=== PATIENT | male | born 1990 | race Caucasian/White ===

== ENCOUNTER 2024-04-15 08:30 | Outpatient (REF) | payer OTHER, SELFPAY ==
--- NOTE | ~2024-04-15 | XR_ITS ---
EXAMINATION: XR CHEST CLINICAL INFORMATION: R06.2 - Wheezing COMPARISON: None available. TECHNIQUE: 2 views of the chest were obtained. FINDINGS: The cardiac, hilar, and mediastinal contours are normal. The lungs are clear bilaterally. There is no pneumothorax or pleural effusion. There is no focal osseous or soft tissue abnormality. XR/XR chest 2V IMPRESSION: Normal chest. Electronically signed by: Ghanshyam Hensley MD 04/15/2024 10:28 AM [facility]
--- OUTSIDE RECORDS SUMMARY | 2024-04-15 11:27 | XMS_ITS | Clinical Summary ---
Author Organization [facility] Address [address] [place] [address] Care Team Providers Care Braiding Operator Name Role Phone Lisa Lu MD Primary Care Provider [phone] Allergies No known active allergies Medications No [...] age to complete this topic Care Teams Braiding Operator Relationship Specialty Start Date End Date Lisa Lu MD [address] [place] [address] Primary Care JELENA Jack [phone] PCP - General Family Medicine 11/10/18
--- OUTSIDE RECORDS SUMMARY | 2024-04-15 11:27 | XMS_ITS | Clinical Summary ---
Author Organization [facility] Address [address] [place] [address] Care Team Providers Care Three Dimensional Map Modeler Name Role Phone Lisa Lu MD Primary Care Provider [phone] Social History Tobacco Use Types Packs/Day Years [...] age to complete this topic Care Teams Three Dimensional Map Modeler Relationship Specialty Start Date End Date Lisa Lu MD [address] [place] [address] PCP - General Family Medicine 11/10/18
--- OUTSIDE RECORDS SUMMARY | 2024-04-15 11:27 | XMS_ITS | Clinical Summary ---
Author Organization [facility] Address [address] [place] [phone] Phone Care Team Providers Care Insurance Loss Adjuster Name Role Phone Unavailable Primary Care Provider [...]
== END 2024-04-15 08:31 | disposition home or self-care (01) ==
LOC: HO.HMGCX 08:30
PROVIDERS: Visit Provider Nurse Practitioner Family
DX: R06.2 Wheezing (principal); R68.89 Other general symptoms and signs
CPT/HCPCS: 71046

== ENCOUNTER 2024-04-15 08:30 | Outpatient (AMB) | payer OTHER, SELFPAY ==
--- NOTE | 2024-04-15 08:36 | MHC.OFFWIV ---
Intake Vital Signs 04/15/24 08:41 Height 5 ft 10 in Weight 266 lb BMI 38.2 BP 104/66 Blood Pressure Location Lt brachial Position Sitting Respiration 13 Pulse 116 H Pulse Source Pulse Oximeter Temp 99.7 F Temp Source Oral Pulse Oximetry (%) 94 Oxygen Delivery Method Room Air Intake Visit Reasons: Upper respiratory infection? Intake Note: Patient complaining of coughing, sinus feels swollen, coughing up phlegm, constant headache, sinus pressure on eyes, and nights sweats x 3 days Patient Tobacco Use Status: Never used Tobacco Automatic Paint Sprayer Operator Required: No Allergies No Known Allergies Allergy (Verified 04/15/24 09:08) Medication List - Last Reconciled 04/15/24 by Vicki White, CERTIFIED PROSTHETIST/ORTHOTIST- lamotrigine mg PO BID Do you need a note to return to daycare/school/sports/work: Yes HPI HPI Comments History of Present Illness Details 33 y/o M started to feel ill on Saturday w flu like sx cough, productive sinus pressure + sore throat, fever, headache Has not taken any bkuq-sem-agghfuw medications as it is contraindicated due to his epilepsy Exam Awake alert NAD, mildly ill-appearing Sclera and conjunctiva clear bilat Nares clear discharge, turbinates erythematous, no sinus tenderness with palpation bilat TM intact and injected bilat MMM, pharynx WNL Tachycardic, regular rhythm LS coarse inspiratory expiratory rhonchi throughout with a reactive cough without distress Plan Treat for the flu with Tamiflu, albuterol for the wheezing. Stat chest x-ray today. Patient will be called with the results once available. Educated on reasons to return to the office or seek additional care CXR negative for PNA. Treatment as above. PT called w/ results. Total time spent caring for the patient today was 30 minutes. This includes time spent before the visit reviewing the chart, time spent during the visit, and time spent after the visit on documentation, reviewing laboratory results, diagnostic imaging, medications, performing a medically necessary evaluation, counseling on diagnoses, care coordination, ordering appropriate tests, ordering appropriate medications, review of tests performed by other providers, reporting test results with the patient, communication with other healthcare providers. [facility] [place] [facility] [place] [address] XRay Report Signed Patient: Jono Lopez MR#: [id number] : 1990 Acct:[id number] Age/Sex: 33 / M ADM Date: 04/15/24 Loc: HO.HMGCX Attending Dr: Vicki PERALES Ordering Physician: Vicki White Date of Service: 04/15/24 Procedure(s): XR chest 2V Accession Number(s): [id number] cc: Vicki White~ EXAMINATION: XR CHEST CLINICAL INFORMATION: R06.2 - Wheezing COMPARISON: None available. TECHNIQUE: 2 views of the chest were obtained. FINDINGS: The cardiac, hilar, and mediastinal contours are normal. The lungs are clear bilaterally. There is no pneumothorax or pleural effusion. There is no focal osseous or soft tissue abnormality. XR/XR chest 2V IMPRESSION: Normal chest. Electronically signed by: Ghanshyam Hensley MD 04/15/2024 10:28 AM [facility] Dictated By: Ghanshyam Hensley MD Signed By: <Electronically signed by Ghanshyam Hensley MD in OV> 04/15/24 1028 DD/ 0950 TD/TT: 04/15/24 1003 Narrow Gauge Engineer: [facility] Social History Patient Tobacco Use Status: Never used Tobacco Physical Exam Vital Signs: Last Vital Signs Temp 99.7 F 04/15/24 08:41 Pulse 116 H 04/15/24 08:41 Resp 13 04/15/24 08:41 BP 104/66 04/15/24 08:41 Pulse Ox 94 04/15/24 08:41 Oxygen Delivery Method Room Air 04/15/24 08:41 BMI result Body Mass Index 38.2 Assessment & Plan Assessment & Plan (1) Flu-like symptoms: Code(s): R68.89 - Other general symptoms and signs (2) Wheezing: Code(s): R06.2 - Wheezing Plan . Orders: Orders XR chest 2V Today R06.2 - Wheezing, R68.89 - Other general symptoms and signs Medications: New oseltamivir (Tamiflu) 75 mg PO Q12H 10 caps 0RF 5 days albuterol sulfate 90 mcg/actuation 2 puffs inhalation Q4-6H PRN 8.5 grams 0RF shortness of breath or wheezing 30 days Coding Level of Care Code Est Pt Level 4 (39231) Diagnoses Flu-like symptoms R68.89 Wheezing R06.2
[2024-04-15 08:41] VITALS: BP 104/66; PULSE 116; RESP 13; TEMP 37.6; O2SAT 94; BMI 38.2
--- OUTSIDE RECORDS SUMMARY | 2024-04-15 08:45 | XMS_ITS | Clinical Summary ---
Author Organization [facility] Address [address] [place] [address] Care Team Providers Care Political Scientist Name Role Phone Lisa Lu MD Primary Care Provider [phone] Allergies No known active allergies Medications No known medications Social History Tobacco Use Types Packs/Day Years Used Date Smoking Tobacco: Never Assessed Sex and Gender Information Value Date Recorded Sex Assigned at Male 11/10/2018 8:13 PM EDT Gender Identity Not on file Sexual Orientation Not on file Last Filed Vital Signs Vital Sign Reading Time Taken Comments Blood Pressure 108/58 11/10/2018 7:50 PM EDT Pulse 84 11/10/2018 7:50 PM EDT Temperature 36.7 ??C (98.1 ??F) 11/10/2018 7:50 PM ED T Respiratory Rate 20 11/10/2018 7:50 PM EDT Oxygen Saturation 98% 11/10/2018 7:50 PM EDT Inhaled Oxygen Concentration - - Weight 111 kg (244 lb 11.4 oz) 11/10/2018 5:53 P M EDT Height - - Body Mass Index - - Plan of Treatment Health Maintenance Due Date Last Done Comments Hepatitis B Vaccines (1 of 3 - 3-dose series) 1990 Hepatitis C Screening 1990 COVID-19 Vaccine (#1) 04/15/1989 Depression Screening 2000 Preventative Health Evaluation 2006 DTap / Tdap / Td (1 - Tdap) 10/14/2007 Influenza Vaccine (#1) 2023 Pneumococcal Vaccine Aged Out No long er eligible based on patient's age to complete this topic RSV Ped < 20 months Aged Out No longe r eligible based on patient's age to complete this topic Care Teams Political Scientist Relationship Specialty Start Date End Date Lisa Lu MD [address] [place] [address] Primary Care JELENA Jack [phone] PCP - General Family Medicine 11/10/18
--- OUTSIDE RECORDS SUMMARY | 2024-04-15 08:46 | XMS_ITS | Clinical Summary ---
Author Organization [facility] Address [address] [place] [id number] Phone Care Team Providers Care Activities Director Scouting Name Role Phone Unavailable Primary Care Provider Unavailabl e Social History Tobacco Use Types Packs/Day Years Used Date Smoking Tobacco: Never Assessed Sex and Gender Information Value Date Recorded Sex Assigned at Not on file Legal Sex Male 6:18 PM EDT Gender Identity Not on file Sexual Orientation Not on file Plan of Treatment Health Maintenance Due Date Last Done Comments MMR Vaccines (1 of 1 - Stand [place] series) 1989 Varicella Vaccines (1 of 2 - 13+ 2-dose series) 2001 DTaP,Tdap,and Td Vaccines (1 - Tdap) 2006 Hepatitis B Vaccines (1 of 3 - 19+ 3-dose series) 10/14/2007 Influenza Vaccines (#1) 2023 COVID-19 Vaccine ( - 2023-2 5 season) 2023 HIB Vaccines Aged Out No longer eligi ble based on patient's age to complete this topic HPV Vaccines Aged Out No longer eligi ble based on patient's age to complete this topic Hepatitis A Vaccines Aged Out No long er eligible based on patient's age to complete this topic IPV Vaccines Aged Out No longer eligi ble based on patient's age to complete this topic Men B Vaccine Aged Out No longer elig ible based on patient's age to complete this topic Meningococcal Vaccine Aged Out No carlos andrew eligible based on patient's age to complete this topic Pneumococcal Vaccine Aged Out No long er eligible based on patient's age to complete this topic
--- OUTSIDE RECORDS SUMMARY | 2024-04-15 08:46 | XMS_ITS | Clinical Summary ---
Author Organization [facility] Address [address] [place] [address] Care Team Providers Care Apprentice Funeral Director Name Role Phone Lisa Lu MD Primary Care Provider [phone] Social History Tobacco Use Types Packs/Day Years Used Date Smoking Tobacco: Never Assessed Sex and Gender Information Value Date Recorded Sex Assigned at Not on file Gender Identity Not on file Sexual Orientation Not on file Obstetrics History Plan of Treatment Health Maintenance Due Date Last Done Comments DTaP,Tdap,and Td Vaccines (1 - Tdap) 10/14/2007 Hepatitis B Vaccines (1 of 3 - 19+ 3-dose series) 10/14/2007 COVID-19 Vaccine ( - 2023-2 5 season) 2023 Influenza Vaccine (#1) 2023 HIB Vaccines Aged Out No longer [...] on patient's age to complete this topic MMR Vaccines Aged Out No longer eligi ble based on patient's age to complete this topic Meningococcal ACWY Vaccine Aged Out N o longer eligible based on patient's age to complete this topic Pneumococcal Vaccine: Pediat rics (0 to 5 Years) and At-Risk Patients (6 to 64 Years) Aged Out No longer eligible b ased on patient's age to complete this topic RSV Immunization Patients Un shari 20 months Aged Out No longer eligible b ased on patient's age to complete this topic Varicella Vaccines Aged Out No longer eligible based on patient's age to complete this topic Care Teams Apprentice Funeral Director Relationship Specialty Start Date End Date Lisa Lu MD [address] [place] [phone] PCP - General Family Medicine 11/10/18
== END 2024-04-15 09:17 | disposition home or self-care (01) ==
PROVIDERS: Visit Provider Nurse Practitioner Family
DX: R68.89 Other general symptoms and signs (principal); R06.2 Wheezing

== ENCOUNTER → 2024-04-15 09:50 | Outpatient (BNV) | payer OTHER, SELFPAY | PROVIDERS: Visit Provider Radiology Diagnostic Radiology | DX: R06.2 Wheezing (principal) | CPT/HCPCS: 71046 ==